=== PATIENT | female | born 2000 | race Caucasian/White ===

== ENCOUNTER 2022-04-13 13:52 | Emergency (ER) | payer MEDICAID ==
[~2022-04-13] VITALS: Ht 170.2 cm; Wt 55.0 kg
[2022-04-13] MEDS ORDERED: BACITRACIN ZINC OINT UDPKT TOP ONE (15:15)
[2022-04-13] MEDS ORDERED: TETANUS, DIPHTHERIA, PERTUSSIS VAC/PF 0.5ML (>10YR OLD) IM ONE (15:15)
[2022-04-13] MEDS ORDERED: LIDOCAINE HCL/EPINEPHRINE 1%-EPI 1:100,000 20 ML VIAL INFIL ONE (15:15)
[2022-04-13] MEDS ORDERED: ACETAMINOPHEN 325MG TABLET PO ONE (15:15)
[2022-04-13] MEDS ORDERED: LIDOCAINE HCL 1% 10 MG/ML 10ML VIAL IJ NR (16:00)
[2022-04-13] MEDS ORDERED: LIDOCAINE HCL/PF 1% 10 MG/ML 5ML VIAL INFIL ONE (16:00)
[2022-04-13] MEDS ORDERED: IBUP-2028 MT (17:17)
[2022-04-13 17:36] VITALS: BP 100/57
[2022-04-13] MEDS ORDERED: BACITRACIN ZINC OINT UDPKT TOP NR (18:15)
== END 2022-04-13 18:52 | disposition home or self-care (01) ==
LOC: ER 13:52
DX: S01.81XA Laceration without foreign body of other part of head, initial encounter (principal); S52.611A Displaced fracture of right ulna styloid process, initial encounter for closed fracture; M25.531 Pain in right wrist; V43.52XA Car driver injured in collision with other type car in traffic accident, initial encounter; Y93.89 Activity, other specified; Y92.410 Unspecified street and highway as the place of occurrence of the external cause
CPT/HCPCS: 12011; 29125; 73110; 81025; 99283; J3490; Z7610